=== PATIENT | male | born 1995 | race Caucasian/White ===

== ENCOUNTER → 2018-10-06 | Outpatient (CLI) | payer BC ==
--- NOTE | 2018-10-06 09:20 | RAD ---
Examination: CT of the abdomen pelvis without contrast HISTORY: History of microscopic hematuria COMPARISON: None available TECHNIQUE: Axial CT images of the abdomen pelvis were performed without contrast. Coronal and sagittal reformats are performed Exposure: One or more of the following individualized dose reduction techniques were utilized for this examination: 1. Automated exposure control 2. Adjustment of the mA and/or kV according to patient size 3. Use of iterative reconstruction technique FINDINGS: The bibasilar lungs are clear. No evidence of free air identified in the abdomen. The visualized noncontrasted liver, spleen, adrenals grossly appears unremarkable. The gallbladder is mildly distended. The stomach is mildly distended. The visualized pancreas grossly appears unremarkable. The small bowel is nondilated. The appendix is normal. Feces and gas noted in the colon. The urinary bladder is mildly distended. Faint subtle punctate 1 mm calculus identified in the left kidney. No evidence of hydronephrosis. No evidence of lytic bony destructive lesion. IMPRESSION: Faint subtle punctate 1 mm calculus left kidney. No evidence of hydronephrosis. Electronically signed by: Maxx Lerma MD (10/06/2018 9:18 AM) [id number]
== END | disposition home or self-care (01) ==
LOC: CT 08:52
PROVIDERS: ATTEND Family Medicine
DX: N20.0 Calculus of kidney (principal); N32.89 Other specified disorders of bladder; K31.89 Other diseases of stomach and duodenum; K82.8 Other specified diseases of gallbladder
CPT/HCPCS: 74176

== ENCOUNTER → 2018-11-30 | Outpatient (CLI) | payer BC ==
--- NOTE | 2018-12-02 14:53 | RAD ---
Submandibular ultrasound, 11/30/2018: HISTORY: Lump The area of clinical concern in the submandibular region was carefully scanned. There is a 11 mm round nodule in the soft tissues at this level. It demonstrates internal color flow. Its margins are smooth. It probably represents a lymph node. It does not demonstrate a normal echogenic hilum.There are several smaller lymph nodes in this region which are not enlarged and do demonstrate normal echogenic kristina. IMPRESSION: Submandibular soft tissue nodule, probably representing an abnormal lymph node. Clinical and sonographic follow-up is suggested to exclude a neoplastic etiology. Electronically signed by: Octaviano Treadwell MD (11/30/2018 4:28 PM) [facility] MTDSaima
== END | disposition home or self-care (01) ==
LOC: US 14:35
PROVIDERS: ATTEND Family Medicine
DX: R22.1 Localized swelling, mass and lump, neck (principal)
CPT/HCPCS: 76536

== ENCOUNTER → 2021-04-25 | Outpatient (CLI) | payer OTHER ==
[~2021-04-25] MED LIST: LISI-517 PO
[2021-04-29 14:12] VITALS: BP 150/77
== END ==
LOC: LAB 14:24
PROVIDERS: ATTEND Internal Medicine Gastroenterology
DX: Z01.812 Encounter for preprocedural laboratory examination (principal); Z20.822 Contact with and (suspected) exposure to COVID-19; K62.5 Hemorrhage of anus and rectum
CPT/HCPCS: C9803; U0003

== ENCOUNTER → 2021-04-29 | Day surgery (SDC) | payer OTHER ==
[~2021-04-29] MED LIST changes: +IPRATRPIUM/ALBUTEROL 0.5/2.5MG 3 ML NEBU. NEB PRN; +IV RINGERS SOLUTION,LACTATED 1,000 ML IV SCH; +LIDOCAINE 2% PF 5 ML VIAL. ONE; +MIDAZOLAM HCL PF 2 MG/2 ML VIAL. IV ONE; +ONDANSETRON PF 4 MG/2 ML VIAL. IV PRN; +PROPOFOL 10,000 MCG/ML (20ML) VIAL IV ONE
[2021-04-29 14:27] VITALS: BP 126/71
== END | disposition home or self-care (01) ==
LOC: SURG 12:53
PROVIDERS: ATTEND Internal Medicine Gastroenterology
DX: K92.1 Melena (principal); K64.0 First degree hemorrhoids; K63.89 Other specified diseases of intestine; I10 Essential (primary) hypertension; Z79.899 Other long term (current) drug therapy; Z98.890 Other specified postprocedural states
CPT/HCPCS: 45378; J2001; J2704; J7120

== ENCOUNTER → 2021-08-04 | Outpatient (CLI) | payer OTHER ==
[2021-04-29 14:27] VITALS: BP 126/71
[~2021-08-04] MED LIST changes: -IPRATRPIUM/ALBUTEROL 0.5/2.5MG 3 ML NEBU. NEB PRN; -IV RINGERS SOLUTION,LACTATED 1,000 ML IV SCH; -LIDOCAINE 2% PF 5 ML VIAL. ONE; -LISI-517 PO; +LISI5TAB15 PO; -MIDAZOLAM HCL PF 2 MG/2 ML VIAL. IV ONE; -ONDANSETRON PF 4 MG/2 ML VIAL. IV PRN; -PROPOFOL 10,000 MCG/ML (20ML) VIAL IV ONE
--- NOTE | 2021-08-04 16:45 | RAD ---
EXAM: RENAL ULTRASOUND CLINICAL HISTORY: Difficulty urinating COMPARISON: CT abdomen and pelvis October 06, 2018. TECHNIQUE: Ultrasound examination of the bilateral kidneys and urinary bladder was performed. FINDINGS: Bilateral kidneys are normal in morphology. No hydronephrosis or nephrolithiasis is seen. N o renal cysts are identified. Right kidney measures 11.0 x 5.1 x 6.1 cm. Left kidney measures 11.4 x 5.1 x 6.3 cm. Limited visualization of the bladder is unremarkable. IMPRESSION: Normal sonographic appearance of the kidneys Electronically signed by: Reji Toro MD (08/04/2021 4:42 PM) [id number]
== END ==
LOC: US 13:00
PROVIDERS: ATTEND Physician Assistant Medical
DX: R39.198 Other difficulties with micturition (principal); I10 Essential (primary) hypertension; Z82.71 Family history of polycystic kidney
CPT/HCPCS: 76770